=== PATIENT | male | born 1960 | race Caucasian/White ===

== ENCOUNTER 2017-05-21 05:22 | Day surgery (SDC) | payer OTHER ==
[~2017-05-21] VITALS: Ht 177.8 cm; Wt 89.8 kg
[~2017-05-21 05:22] MED LIST: BENTYL10 MG PO
[2017-05-21 05:53] VITALS: BP 143/92
[2017-05-21] MEDS ORDERED: PERCOCET 5/31 TABLET PO (08:57)
[2017-05-21 09:17] VITALS: BP 123/85
[2017-05-21 10:17] VITALS: BP 127/74
== END 2017-05-21 10:17 | disposition home or self-care (01) ==
LOC: SDC 05:22
PROC: 0WUF0JZ Supplement Abdominal Wall with Synthetic Substitute, Open Approach (ICD-10-PCS; principal; 2017-05-21)
DX: K42.9 Umbilical hernia without obstruction or gangrene (principal); F41.1 Generalized anxiety disorder; K58.9 Irritable bowel syndrome, unspecified
CPT/HCPCS: C1781; J0131; J0690; J1100; J2250; J2405; J3010; S0020